=== PATIENT | female | born 1975 | race Caucasian/White ===

== ENCOUNTER 2017-03-23 04:33 | Inpatient (IN) ==
[2017-03-23] MEDS ORDERED: DEXAMETHASONE 4 MG/1 ML VIAL IV STA (04:57)
[2017-03-23] MEDS ORDERED: CLINDAMYCIN INJ 900 MG in PREMIX 1 EACH IV STA (04:57)
[2017-03-23] MEDS ORDERED: HYDROmorphone 2 MG/1 ML VIAL IV ONE (04:57)
[2017-03-23] MEDS ORDERED: ONDANSETRON 4 MG/2 ML VIAL IV STA (04:57)
--- NOTE | 2017-03-23 05:01 | Emergency Department Note ---
Kody Casillas Emily, am scribing for, and in the presence of, Earnest Hoover MD 04: 58. Sneha Casillas Charles R, MD, personally performed the services described in this documentation, ascribed by Christine Gates in my presence, and it is both accurate and complete 501 . Arrival - Arrival Chief Complaint: Dental Stated Complaint: abcess tooth, severe facial swelling ED Nursing Triage Note: Patient complains of dental abscess and left sided facial swelling and pain. Patient states that she was seen at [facility] last and Monday and was sent home with antibiotics. Patient was states that medication has not help. Severe facial swelling and indentation noted upon triage. Has a dentist appointment today but says that she was in too much pain to wait. Mode of Arrival: Ambulatory Limitations: No Limitations Source: Patient, Significant other Time Seen by Provider: 03/23/17 04:47 - History of Present Illness HPI Narrative: Pt is a 41 y/o female who came to ED with c/o dental abscess on left side with facial swelling and pain that started one week ago. Pt states that she was seen at [facility] last and Monday and was sent home with abx. Pt states that medication has not helped, and she has severe facial swelling and indentation. Pt has a dentist appointment today but says that she was in too much pain to wait, needing some pain relief. No known medical hx. Onset (ago): week(s) Consistency: constant Severity: moderate, severe Severity scale (1-10): 8 Date of Last Menstrual Period: 02/28/2017 Allergies/Adverse Reactions: Allergies Allergy/AdvReac Type Severity Reaction Status Date / Time No Known Allergies Allergy Verified 02/10/15 08:37 Home Medications: Home Medications Medication Instructions Recorded Confirmed Type No Known Home Medications [No 03/23/17 03/23/17 History Known Home Medications] Review of System - Review of System 12 point system: reviewed and no additional remarkable complaints except as stated - Review of System Constitutional: Absent: chills, fever Head/Ears/Nose/Throat: Present: other (facial swelling due to swollen abscess; very painful) Respiratory: Absent: respiratory distress Cardiovascular: Absent: chest pain Gastrointestinal: Absent: abdominal pain, vomiting Skin: Absent: rash Neurological: Absent: headache Medical,Surgical,& Family Hx - Social History Smoking Status: Never smoker Frequency of Alcohol Use: None Type of Drug Use: None Exam Vital Signs: Vital Signs Temperature 98.7 F 03/23/17 04:45 Pulse Rate 100 H 03/23/17 04:45 Respiratory Rate 20 03/23/17 04:45 Blood Pressure 115/52 03/23/17 04:45 O2 Sat by Pulse Oximetry 100 03/23/17 04:38 - General General appearance: alert, in no apparent distress - Head Head exam: Present: atraumatic, normocephalic - Eye Eye exam: Present: PERRL, EOMI - ENT ENT exam: Present: mucous membranes moist, other (massive left face abscess that is severely swollen reaching across the midline and under neck; barely opeing her mouth secondary to pain and swelling). Absent: mucous membranes dry - Neck Neck exam: Present: full ROM - Chest Chest inspection: Present: symmetric chest wall rise - Respiratory Respiratory exam: Present: normal lung sounds bilaterally. Absent: respiratory distress - Cardiovascular Cardiovascular exam: Present: tachycardia, normal heart sounds - Extremities Exam Extremities exam: Present: full ROM. Absent: pedal edema - Neurological Exam Neurological exam: Present: alert, oriented X3, CN II-XII intact, normal gait. Absent: motor sensory deficit - Psychiatric Psychiatric exam: Present: normal affect, normal mood - Skin Skin exam: Present: warm, dry Course - Consultations Consultation #1: Dr Diaz states he will see patient in the hospital recommend consult Dr. Mcghee oral surgeon as well. He wanted the patient admitted to hospitalist service Time: 05:00 Consultation #2: Hospitalist will admit patient Time: 05:01 Critical Care Time Critical Care Time: No Disposition Clinical Impression: Toothache, Dental abscess, Left facial swelling, Cellulitis left face Case discussed with: patient, patient's family Disposition: Still a Patient Condition: Stable Time of Disposition: 05:01
[2017-03-23 05:16] LABS: Basophils % 0.2 % (0.0-0.8); Eosinophils # 0.1 10*3/uL (0.0-0.87); Eosinophils % 0.4 % (0.00-10.9); Hematocrit 22.7 VOL% (35.7-47.0); Hemoglobin 6.5 GM/DL (12.0-16.0); Immature Granulocytes % 1.4 %; Immature Granulocytes Absolute 0.26 #; Lymphocytes # 1.4 10*3/uL (1.4-4.0); Lymphocytes % 7.5 % (21.3-54.2); Mean Corpuscular HGB Conc 28.6 GM/DL (32-36); Mean Corpuscular Hemoglobin 18 PG (27-34); Mean Corpuscular Volume 62.9 FL (87-102); Mean Platelet Volume 10.6 FL (9.6-12.0); Monocytes # 1.7 10*3/uL (0.11-0.8); NRBC # 0.02 10*3/uL; Neutrophils # 15.4 10*3/uL (1.4-7.4); Neutrophils % 81.5 % (38.7-73.9); Platelet Count 643 T/CUMM (130-400); Red Blood Count 3.61 MC/CUMM (3.8-5.5); Red Cell Distribution Width 18.1 % (9.3-17.3); White Blood Count 18.9 T/CUMM (4-12)
[2017-03-23] MEDS ORDERED: ONDANSETRON 4 MG/2 ML VIAL IV PRN (05:25)
[2017-03-23] MEDS ORDERED: ACETAMINOPHEN 325 MG TABLET PO PRN (05:25)
[2017-03-23] MEDS ORDERED: DOCUSATE SODIUM 100 MG CAPSULE PO PRN (05:25)
[2017-03-23] MEDS ORDERED: ONDANSETRON 4 MG/2 ML VIAL ONE (05:33)
[2017-03-23] MEDS ORDERED: CLINDAMYCIN INJ 50 ML IV ONE (05:33)
[2017-03-23] MEDS ORDERED: HYDROmorphone 2 MG/1 ML VIAL ONE (05:34)
[2017-03-23] MEDS ORDERED: DEXAMETHASONE 10 MG/1 ML VIAL ONE (05:34)
[2017-03-23 05:48] LABS: Giant Platelets Few; Hypochromasia 1+; Ovalocytes Slight; Platelet Estimate Increased
[2017-03-23] MEDS ORDERED: PIPERACILLIN/TAZOBACTAM 3,375 MG in SODIUM CHLORIDE 0.9% 100 ML IV STA (05:49)
--- NOTE | 2017-03-23 05:49 | Hospitalist History & Physical ---
Assessment and Plan - Time spent with patient Time spent with patient: Greater than 30 minutes (1) Dental abscess Status: Acute Assessment and plan: Admit to hospitalist services. Consult ENT and Oral surgeon. WBC was 18.9; afebrile. Need for CT was discussed to ERP and one was ordered. Zosyn 3.375 mg IV Q8 hours. Current Visit: Yes (2) Anemia Status: Acute Assessment and plan: Hemoglobin and hematocrit were 6.5 and 22.7 respectively. Type and screen and transfuse 2 unit PRBC. Recheck hemoglobin an hematocrit 1 hour post transfusion. A murmur was noted on exam which is likely due to anemia. Recheck after transfusion. Current Visit: Yes (3) DVT prophylaxis Status: Acute Assessment and plan: SCDs in case there is a need for surgery. Current Visit: Yes History of Present Illness Chief complaint: Facial swelling History of present illness: Ms. Santiago is a 41 year old female with no past medical history who presented to the ED this morning with left-sided facial swelling and pain x 7 days. Ms. Santiago reports that 7 days ago, she had sudden development of facial swelling for which she presented to the ED in [place] where she was given an antibiotic shot and sent home with a prescription for clindamycin. On Monday, she once again presented to the ED in [place] because there had been no change in her condition. At that time she was given 3 shots and sent home to continue her oral antibiotics. This morning she presented to [facility] ED because the pain had become more than she can bear and still has had no change in swelling. Her pain is 10/10 and throbbing. She also has complaints of fever, chills, and continuous nausea but denies vomiting other than one episode a few days ago. She takes no routine medications. Hospitalist services were consulted for further evaluation and management, and the patient will be admitted to the medical-surgical unit. Home Medications Medication Instructions Recorded Confirmed Type No Known Home Medications [No 03/23/17 03/23/17 History Known Home Medications] Allergies Allergy/AdvReac Type Severity Reaction Status Date / Time No Known Allergies Allergy Verified 02/10/15 08:37 Medical,Surgical,& Family Hx - Medical History Medical History: noncontributory (None) - Social History Smoking Status: Never smoker Frequency of Alcohol Use: None Type of Drug Use: None 12 point system: reviewed and no additional remarkable complaints except as stated - Constitutional Constitutional: Present: chills, fever(s), night sweats - EENT Eyes: Absent: blurry vision, diplopia, loss of vision Ears: Absent: decreased hearing, ear discharge - Cardiovascular Cardiovascular: Absent: chest pain at rest, dyspnea, edema, orthopnea, palpitations - Respiratory Respiratory: Absent: cough, dyspnea, wheezing - Gastrointestinal Gastrointestinal: Present: nausea, vomiting. Absent: abdominal pain, constipation, diarrhea - Genitourinary Genitourinary: Absent: dysuria, urinary frequency - Musculoskeletal Musculoskeletal: Absent: arthralgias, back pain, joint swelling, muscle weakness , myalgias - Neurological Neurological: Present: numbness. Absent: dizziness, syncope - Psychiatric Psychiatric: Absent: anxiety, depression - Endocrine Endocrine: Absent: cold intolerance, polydipsia, polyphagia, polyuria - Hematologic/Lymphatic Hematologic/Lymphatic: Absent: easy bleeding, easy bruising Exam - Constitutional Vitals: Period Temp Pulse Resp BP Sys/Pinon Pulse Ox Last 24 Hr 98.7 F-98.7 F 100-100 20-20 115-115/52-52 100 Exam: Constitutional System: Afebrile. Awake, alert and oriented x 3. No distress. No tremulousness. Head: Normocephalic, atraumatic. Ears, Nose and Throat System: Significant left-sided facial swelling, pain and tenderness. No epistaxis or discharge Eyes System: Pupils equal, round, and reactive. Extraocular muscles intact. Neck: Supple, without adenopathy, No jugular venous distention. No thyromegaly, neck mass, or prior surgery apparent. Respiratory System: Chest clear to auscultation. Cardiovascular System: Heart with regular rate and rhythm. Systolic murmur noted. GI System: Abdomen soft, nontender. Normo active bowel sounds present. Musculoskeletal System: limbs with no pedal edema. Full distal pulses. Normal capillary refill. Neurological System: No discernable sensory deficit. No aphasia Psychiatric System: Conversation is rational Results - Labs CBC & BMP: 03/23/17 05:09 03/23/17 05:09
[2017-03-23] MEDS ORDERED: SODIUM CHLORIDE 0.9% 250 ML IV PRN (05:50)
[2017-03-23] MEDS ORDERED: PIPERACILLIN/TAZOBACTAM 3,375 MG VIAL IV ONE (05:51)
[2017-03-23 05:55] LABS: Albumin 2.9 G/DL (3.4-5.0); Bilirubin,Total 0.7 MG/DL (0.2-1.0); Calcium 8.9 MG/DL (8.5-10.1); Potassium 3.7 MMOL/L (3.5-5.1); Total Protein 6.4 G/DL (6.4-8.3)
--- NOTE | 2017-03-23 06:35 | CT Report ---
History is left facial cellulitis Axial images obtained with 2-D multiplanar reconstruction images also stored and interpreted There is marked soft tissue swelling in the left jaw anterior laterally on the left abutting the mandible and the muscles of mastication. Tiny amounts of fluid present in surgery without a discrete loculated abscess. There is adjacent odontogenic disease in the left maxilla present with some contiguous lobulated the opacity in the inferior aspect left maxillary sinus measuring up to 2.5 cm. Scattered 5-8 mm cervical nodes present. No intraorbital inflammation seen. Impression: 1. Odontogenic disease with left facial cellulitis and left mastoid disease. No loculated facial abscess identified The CT exam was performed using one or more of the following dose reduction techniques: Automated exposure control, adjustment of the mA and/or kV according to patient size, or use of iterative reconstruction technique. PROCEDURE INTERPRETED AT [facility] DEPARTMENT OF RADIOLOGY Final Report Signed by: Dr. Liudmila Trimble
[2017-03-23] MEDS: PIPERACILLIN/TAZOBACTAM 3,375 MG in SODIUM CHLORIDE 0.9% 100 ML IV SCH ×3 (07:43→22:38)
--- NOTE | 2017-03-23 08:11 | Consultation ---
Assessment and Plan - Time spent with patient Time spent with patient: Less than 30 minutes (1) Left facial swelling Status: Acute Assessment and plan: I will defer to oral surgery for the treatment of this but I am available for any additional treatment as needed. I will speak directly with oral surgery in regards to this. Thank you very much for this consult I will intermittently follow this patient throughout her stay to make sure she continues to progress. Overall I agree with the treatment currently. Current Visit: Yes (2) Toothache Status: Acute Current Visit: Yes (3) Dental abscess Status: Acute Current Visit: Yes (4) Anemia Status: Acute Current Visit: Yes (5) Anemia Status: Acute Current Visit: Yes History of Present Illness - Data of Consult Patient: new to practice Consult date: 03/23/17 - Consult Narrative Reason for consult: Left submandibular abscess secondary to odontogenic origin History of present illness: Ms. Santiago is a 41 year old female presents to the ER with worsening left submandibular swelling erythema and tenderness. This is been getting worse over the last several weeks and has markedly exacerbated to where she is now no longer able to open her mouth. She is seen by the ER and found to have a left submandibular abscess with odontogenic origin ENT is consulted and I said that they also needed to consult oral surgery as they are more likely to be able to address the underlying issue. CC: Maynor Olmos MD - Home Medications and Allergies Home Medications: Home Medications Medication Instructions Recorded Confirmed Type No Known Home Medications [No 03/23/17 03/23/17 History Known Home Medications] Allergies/Adverse Reactions: Allergies Allergy/AdvReac Type Severity Reaction Status Date / Time No Known Allergies Allergy Verified 02/10/15 08:37 12 point system: reviewed and no additional remarkable complaints except as stated Medical,Surgical,& Family Hx - Medical History HEENT: History of: Dental Problems (current abcess) Endocrine: No history of: Adrenal Disease, Diabetes Mellitus (IDDM), Diabetes Mellitus ( NIDDM), Thyroid Disorder, Endocrine Cancer, Endocrine Problems Hematology: History of: Anemia - Surgical History Thoracic Surgeries: Patient denies;: Organ Transplant Neurologic Surgeries: Patient denies: Neurologic Surgery HEENT Surgeries: Patient denies: Thyroid Surgery - Social History Smoking Status: Never smoker Frequency of Alcohol Use: None Type of Drug Use: None Exam - Constitutional Vitals: Period Temp Pulse Resp BP Sys/Pinon Pulse Ox Last 24 Hr 98.7 F-98.7 F 90-100 16-20 109-133/52-68 98-100 General appearance: mild distress, over weight - Head Head exam: Present: normal inspection, other (Erythemic fluctuant left submandibular abscess and secondary cellulitis) - Eye Eye exam: Present: EOMI Pupils: Present: CAMACHO - ENT ENT exam: Present: normal exam, normal external ear exam, other (Rah trismus able to see a markedly carious left mandibular molar consistent with the root cause of the problem) - Neck Neck exam: Present: lymphadenopathy, tenderness - Respiratory Respiratory exam: Present: other (No gross shortness of breath or difficulty breathing) - GI/Abdominal GI/Abdominal exam: Present: soft - Extremities Exam Extremities exam: Present: normal inspection, normal capillary refill - Neurological Exam Neurological exam: Present: alert, oriented X3, CN II-XII intact - Psychiatric Psychiatric exam: Present: normal affect, normal mood - Skin Skin exam: Present: normal color (Except for erythematous left submandibular area see above), warm Results - Labs CBC & BMP: 03/23/17 05:09 03/23/17 05:09 Lab Results: I have reviewed the past 24 hour labs (Noted marked anemia I agree with hospitalist transfusion we will continue to monitor this during treatment) - Diagnostic Findings Procedure: CT: pending, image reviewed by me, report reviewed by me (I agree with radiology interpretation left submandibular abscess may be a little worse Clinically then visualized on CT)
[2017-03-23] MEDS: PANTOPRAZOLE 40 MG TABLET PO SCH (10:01)
--- NOTE | 2017-03-23 12:29 | Event Note ---
03/23/17 - Patient came to the ED at 5a.m. this morning for further evaluation of facial left-sided jaw swelling/abscess with pain for [address] Diaz with ENT has seen patient and agrees and recommends to defer care to oral surgeon for further treatment. Dr Diaz will discuss with oral surgeon as well. She is awaiting consulted oral surgeon to visit for assessment and further evaluation with treatment care plan. I talked with her nurse and asked her to please place a gauze to abscessed area to left side of face because it has now started to drain. Will await recommendations with surgery, will continue antibiotic coverage.
--- NOTE | 2017-03-23 12:38 | ECHO Report ---
Tamiko Santiago Exam Date: 03/23/2017 09:44 Referring Physician: Technologist: brandon Falcon ARDMS, RVT Age: 41 Ht (in): 63 Wt (lb): 191 Gender: F Exam Location: [facility] Echo Indications: Cardiac murmur, unspecified, Tooth abcess, Anemia BP: 109 / 68 HR: Rhythm: Sinus Technical Quality: average IMPRESSIONS Left ventricular cavity size structure and function are normal. Diastolic parameters appear to be most consistent with grade 2 diastolic dysfunction or pseudonormalization. Right ventricle is enlarged with normal function. MEASUREMENTS (Male / Female) Normal Values 2D ECHO LV Diastolic Diameter PLAX 4.4 cm 4.2 - 5.9 / 3.9 - 5.3 cm LV Systolic Diameter PLAX 1.2 cm LV Fractional Shortening PLAX 72.5 % IVS Diastolic Thickness 0.8 cm 0.6 - 1.0 / 0.6 - 0.9 cm LVPW Diastolic Thickness 0.9 cm 0.6 - 1.0 / 0.6 - 0.9 cm RV Internal Dim ED PLAX 3.9 cm Aortic Root Diameter 3.0 cm LA Systolic Diameter LX 3.9 cm 3.0 - 4.0 / 2.7 - 3.8 cm FINDINGS Left Ventricle Left ventricular cavity size structure and function are normal. Diastolic parameters appear to be most consistent with grade 2 diastolic dysfunction or pseudonormalization Right Ventricle Right ventricle is enlarged. The function is normal Right Atrium Slightly enlarged Left Atrium Normal Mitral Valve Mitral valve is normal there is no stenosis or regurgitation Aortic Valve Aortic valve is tricuspid there is no stenosis or regurgitation Tricuspid Valve Tricuspid valve is normal. There is no demonstrable tricuspid regurgitation Pulmonic Valve Pulmonic valve is anatomically normal there is no stenosis or insufficiency Pericardium Posterior pericardium is mildly echolucent but there is no effusion Aorta Limited visualization of the thoracic aorta is normal Connie Vivar (Electronically Signed) Final Date: 23 March 2017 12:37
--- NOTE | 2017-03-23 12:47 | Consultation ---
Assessment and Plan - Time spent with patient Time spent with patient: Less than 30 minutes (1) Dental abscess Status: Acute Assessment and plan: 41 yo F with left submandibular abscess likely due to carious tooth #18 to require I & D and extraction of tooth 1. OK to start diet today - soft foods, NPO at midnight tonight for surgery tomorrow after noon 2. Consent for Incision and drainage left submandibular abscess and extraction of necessary teeth 3. Cont iv antibiotics and pain control 4. Thank you for the consult, please call with questions as I will continue to follow the patient. Current Visit: Yes History of Present Illness - Data of Consult Patient: new to practice Consult date: 03/23/17 Requesting Physician: Sandip Diaz - Consult Narrative Reason for consult: left submandibular abscess History of present illness: Ms. Santiago is a 41 year old female who presented to the ED today with 5 days worth of left facial swelling worsening past few days causing trismus and dysphagia. No f/c. C/o drainage from left mandible and pain at left lower molar tooth. Has not visited dentist in many months. Since beginning antibiotics patient feels like swelling has decreased and trismus/dysphagia improved. CC: Maynor Olmos MD - Home Medications and Allergies Home Medications: Home Medications Medication Instructions Recorded Confirmed Type No Known Home Medications [No 03/23/17 03/23/17 History Known Home Medications] Allergies/Adverse Reactions: Allergies Allergy/AdvReac Type Severity Reaction Status Date / Time No Known Allergies Allergy Verified 02/10/15 08:37 - Constitutional Constitutional: Present: as per HPI - EENT Nose, mouth and throat: Present: as per HPI, other (left mandibular swelling with drainage, painful left mandibular second molar) Medical,Surgical,& Family Hx - Medical History HEENT: History of: Dental Problems (current abcess) Endocrine: No history of: Adrenal Disease, Diabetes Mellitus (IDDM), Diabetes Mellitus ( NIDDM), Thyroid Disorder, Endocrine Cancer, Endocrine Problems Hematology: History of: Anemia - Surgical History Thoracic Surgeries: Patient denies;: Organ Transplant Neurologic Surgeries: Patient denies: Neurologic Surgery HEENT Surgeries: Patient denies: Thyroid Surgery - Social History Smoking Status: Never smoker Frequency of Alcohol Use: None Type of Drug Use: None Exam - Constitutional Vitals: Period Temp Pulse Resp BP Sys/Pinon Pulse Ox Last 24 Hr 98.0 F-98.7 F 88-100 16-20 109-133/52-68 98-100 General appearance: mild distress - Eye Eye exam: Present: EOMI Pupils: Present: CAMACHO - ENT ENT exam: Present: other (carious/fractured tooth #18 with tenderness, tongue mobile and not elevated, no floor of mouth swelling, no uvular deviation) - Neck Neck exam: Present: other (left submandibular swelling, fluctuant with erythema and drainage, +tenderness) Results - Labs CBC & BMP: 03/23/17 05:09 03/23/17 05:09 Labs: elevated WBC - Impressions Patient with left submandibular abscess likely secondary to carious tooth #18 to require I&D and extraction of tooth
[2017-03-23 21:41] LABS: Hematocrit 28.2 VOL% (35.7-47.0); Hemoglobin 8.7 GM/DL (12.0-16.0)
[2017-03-23] MEDS: CHLORHEXIDINE 0.12% ORAL RINSE 60 ML BOTTLE SWISH/SPIT SCH (22:31)
[2017-03-23 23:00] LABS: Apearance,Urine CLEAR (Clear); Bilirubin,Urine Negative (Negative); Blood, Urine Moderate mg/dL (Negative); Glucose,Urine (UA) 50 mg/dL (Negative); Ketones,Urine Negative (Negative); Nitrite,Urine Negative (Negative); Protein,Urine Negative; RBC,Urine 3 /HPF (0-4); Squamous Epithelial Cell,Urine Occasional /HPF (0-10); Urine Color Yellow (Yellow); Urine Specific Gravity 1.011 (1.001-1.035); WBC,Urine 4 /HPF (0-6)
[2017-03-24] MEDS: MORPHINE 2 MG/1 ML SYRINGE IV PRN ×3 (01:36→15:27)
[2017-03-24 05:07] LABS: Basophils % 0.2 % (0.0-0.8); Hematocrit 27.2 VOL% (35.7-47.0); Hemoglobin 8.5 GM/DL (12.0-16.0); Immature Granulocytes % 2.6 %; Immature Granulocytes Absolute 0.46 #; Lymphocytes # 1.4 10*3/uL (1.4-4.0); Lymphocytes % 7.7 % (21.3-54.2); Mean Corpuscular HGB Conc 31.3 GM/DL (32-36); Mean Corpuscular Hemoglobin 21 PG (27-34); Mean Corpuscular Volume 67.5 FL (87-102); Monocytes # 1.4 10*3/uL (0.11-0.8); NRBC # 0.02 10*3/uL; Neutrophils # 14.5 10*3/uL (1.4-7.4); Neutrophils % 81.5 % (38.7-73.9); Platelet Count 666 T/CUMM (130-400); Red Blood Count 4.03 MC/CUMM (3.8-5.5); White Blood Count 17.8 T/CUMM (4-12)
[2017-03-24 05:47] LABS: Band Neutrophils 2 % (0-10); Elliptocytes Few; Giant Platelets Few; Hypochromasia 1+; Lymphocytes 7 % (20-55); Platelet Estimate Increased; Segmented Neutrophils 87 % (50-85); Total Cells Counted 100
[2017-03-24] MEDS: PIPERACILLIN/TAZOBACTAM 3,375 MG in SODIUM CHLORIDE 0.9% 100 ML IV SCH ×3 (06:13→22:15)
--- NOTE | 2017-03-24 07:45 | Physician Query Form ---
CLICK EDIT DOCUMENT TO SELECT QUERY ANSWER --> OK --> SIGN Deepali Garcia RN, CCDS Certified Clinical Commanding Officer [employer] W) [phone] (f) [phone] [email or web address]: Make your selection(s) from the choices in EACH section by typing an "x" and enter comments in the comment section. Please use your independent medical judgment in providing your response. This request does not imply that any particular answer is desired or expected. CLINICAL INDICATORS: (Providers should not edit this section) "Patient was found to be significantly anemic most likely related to her heavy periods we are going to transfuse 2 units of packed red blood cells. / HH 6.5 and 22.7" Based on the above, could you clarify which of the following conditions you are evaluating, treating, and/or monitoring? (X ) Blood loss anemia ( ) acute ( ) chronic ( X) acute on chronic ( ) Acute blood loss anemia on baseline chronic anemia ( ) Acute blood loss anemia as a complication of a procedure ( ) Iron deficiency anemia not associated with blood loss ( ) Dilutional anemia due to IV fluids ( ) Anemia due to chemotherapy ( ) Anemia due to neoplastic disease ( ) Anemia due to chronic kidney disease ( ) Pernicious anemia ( ) Aplastic anemia ( ) Hemolytic anemia ( ) immune ( ) non-immune - please specify cause: ( ) Anemia due to other condition, please specify: ( ) Clinically unable to determine COMMENTS: PLEASE ALSO DOCUMENT RESPONSE IN PROGRESS NOTES AND/OR DISCHARGE SUMMARY Use of terms such as suspected, likely, or probable (associated with a specific diagnosis that is being evaluated, monitored, or treated as if it exists) are acceptable and can be restated in the discharge summary if not ruled out. MTDD
[2017-03-24] MEDS: PANTOPRAZOLE 40 MG TABLET PO SCH (08:30)
[2017-03-24] MEDS: CHLORHEXIDINE 0.12% ORAL RINSE 60 ML BOTTLE SWISH/SPIT SCH ×2 (08:31→22:15)
--- NOTE | 2017-03-24 11:26 | Hospitalist Progress Note ---
Assessment and Plan - Time spent with patient Time spent with patient: Less than 30 minutes (1) Dental abscess Status: Acute Assessment and plan: Surgery scheduled for today. greatly appreciate Oral Surgeon assistance with care and for further recommendations. Will repeat labs in a.m. Current Visit: Yes (2) Left facial swelling Status: Acute Assessment and plan: WBC slight decrease to 17.8 from 18.9. Left sided facial abscess drainage with gauze intact. Continue follow up on blood culture finals. Continue antibiotic therapy. Surgery today. Will follow oral surgeon recommendation with care. Current Visit: Yes Hospitalist: Subjective Interval history: Ms Santiago seen and chart reviewed. She is sitting up on side of bed awaiting to go to surgery around 12 today. She verbalized the left-sided facial abscess is still draining and the swelling has improved a little. She verbalized that the pain has been better and has been well controlled. She denies shortness of breath. Exam - Constitutional Vitals: Period Temp Pulse Resp BP Sys/Pinon Pulse Ox Last 24 Hr 97.0 F-99.2 F 20-99 16-20 111-155/58-90 97-100 General appearance: normal weight, no acute distress - Head Head exam: Present: normal inspection - Eye Eye exam: Present: EOMI Pupils: Present: CAMACHO - ENT ENT exam: Present: other (left sided facial abscess with gauze intact related to frequent drainage) - Neck Neck exam: Present: normal inspection. Absent: thyromegaly - Respiratory Respiratory exam: Present: clear to auscultation bilaterally. Absent: rhonchi, stridor, wheezes - Cardiovascular Cardiovascular exam: Present: regular rate and rhythm - GI/Abdominal GI/Abdominal exam: Present: normal bowel sounds, soft. Absent: tenderness, rebound - Extremities Exam Extremities exam: Present: full ROM. Absent: edema - Neurological Exam Neurological exam: Present: alert, oriented X3, CN II-XII intact - Psychiatric Psychiatric exam: Present: normal affect, normal mood, anxious (a little anxious related to having surgery todayfor leftside facial abscess) - Skin Skin exam: Present: normal color, warm, dry Results - Labs CBC & BMP: 03/24/17 04:26 03/23/17 05:09 Lab Results: I have reviewed the past 24 hour labs
[2017-03-24] MEDS ORDERED: SUCCINYLCHOLINE 200 MG/10 ML VIAL ONE (11:28)
[2017-03-24] MEDS ORDERED: PROPOFOL 200 MG/20 ML VIAL IV ONE (11:28)
[2017-03-24] MEDS ORDERED: LIDOCAINE 2% 5 ML VIAL ONE (11:28)
[2017-03-24] MEDS ORDERED: ONDANSETRON 4 MG/2 ML VIAL ONE (11:28)
[2017-03-24] MEDS ORDERED: DEXAMETHASONE 4 MG/1 ML VIAL ONE (11:28)
[2017-03-24] MEDS ORDERED: BUPIVACAINE 0.5% /EPI 10 ML VIAL ONE (11:35)
--- NOTE | 2017-03-24 12:18 | Operative Note ---
Date of procedure: 03/24/17 Pre-op diagnosis: left submandibular abscess, carious tooth #18 Post-op diagnosis: same Procedure: Incision and drainage left submandibular abscess, extraction of tooth #18 Implants: 08/03 in kenneth drain left neck Anesthesia: DENA, local Surgeon / Physician: Chun Mcghee Estimated blood loss: minimal Specimens: other (aerobic/anaerobic cultures) Condition: stable Disposition: PACU Results - Labs CBC & BMP: 03/24/17 04:26 03/23/17 05:09 Discharge Plan - Discharge Medications No Action No Known Home Medications [No Known Home Medications] - Follow Up or Referral - Forms/Instructions
--- NOTE | 2017-03-24 12:23 | Event Note ---
S/p I&D left submandibular abscess and extraction of tooth #18 1. continue iv antibiotics, pain control 2. follow for results of cultures and narrow antibiotic coverage as indicted - however likely may be negative given she has been on iv antibiotics currently 3. drain in neck - i will remove first dressing after 24 hours and then nursing may change dressing to left neck twice daily 4. will keep drain in place until drainage stopped 5 due to level of skin necrosis at left neck, may require secondary surgery for repair and skin grafting if does not granulate in properly 6. irrigate oral cavity with chlorhexadine, irrigate extraoral neck with saline and bacitracin 7. I will continue to follow along - patient may be admitted through the weekend for monitoring drain output
--- NOTE | 2017-03-24 12:30 | Anesthesia Post-Op ---
Anesthesia Post OP - Post Ansesthetic Evaluation Patient seen in post op: Yes Resp: within normal limits CV: within normal limits Mental: within normal limits Temp: within normal limits [id number]: within normal limits Nausea and Vomiting: within normal limits Pain: within normal limits
[2017-03-24] MEDS ORDERED: fentaNYL 100 MCG/2 ML VIAL ONE (12:34)
[2017-03-24] MEDS ORDERED: MIDAZOLAM 2 MG/2 ML VIAL ONE (12:34)
[2017-03-24] MEDS ORDERED: SEVOFLURANE 1 UNIT/15 MINUTE INH ONE (12:34)
[2017-03-24] MEDS ORDERED: HYDROmorphone 2 MG/1 ML VIAL IV PRN (12:41)
[2017-03-24] MEDS ORDERED: ONDANSETRON 4 MG/2 ML VIAL IV PRN (12:41)
[2017-03-24] MEDS ORDERED: LACTATED RINGERS 1,000 ML IV SCH (13:00)
[2017-03-25 04:52] LABS: Basophils % 0.2 % (0.0-0.8); Hematocrit 28.6 VOL% (35.7-47.0); Hemoglobin 8.6 GM/DL (12.0-16.0); Immature Granulocytes % 2.4 %; Immature Granulocytes Absolute 0.31 #; Lymphocytes # 0.9 10*3/uL (1.4-4.0); Lymphocytes % 6.8 % (21.3-54.2); Mean Corpuscular HGB Conc 30.1 GM/DL (32-36); Mean Corpuscular Hemoglobin 21 PG (27-34); Mean Corpuscular Volume 68.9 FL (87-102); Mean Platelet Volume 10.2 FL (9.6-12.0); Monocytes # 0.8 10*3/uL (0.11-0.8); Monocytes % 6.3 % (1.7-12.7); Neutrophils # 10.7 10*3/uL (1.4-7.4); Neutrophils % 84.3 % (38.7-73.9); Platelet Count 728 T/CUMM (130-400); Red Blood Count 4.15 MC/CUMM (3.8-5.5); Red Cell Distribution Width 22.8 % (9.3-17.3); White Blood Count 12.7 T/CUMM (4-12)
[2017-03-25 05:07] LABS: Calcium 8.8 MG/DL (8.5-10.1); Magnesium 2.4 MG/DL (1.8-2.4); Osmolality,Calculated 281.3 MOS/KG (273-304); Potassium 4.6 MMOL/L (3.5-5.1)
[2017-03-25] MEDS: PIPERACILLIN/TAZOBACTAM 3,375 MG in SODIUM CHLORIDE 0.9% 100 ML IV SCH ×3 (05:45→21:39)
[2017-03-25] MEDS: PANTOPRAZOLE 40 MG TABLET PO SCH (09:45)
[2017-03-25] MEDS: CHLORHEXIDINE 0.12% ORAL RINSE 60 ML BOTTLE SWISH/SPIT SCH ×2 (10:00→21:53)
--- NOTE | 2017-03-25 14:20 | Hospitalist Progress Note ---
Assessment and Plan (1) Dental abscess Status: Acute Assessment and plan: The patient has had debridement of dental abscess. The patient has considerable drainage from her face. The patient is continuing IV antibiotics until it is determined by Dr. Muñiz that she can go home on pills. Current Visit: Yes (2) Left facial swelling Status: Acute Current Visit: Yes Hospitalist: Subjective Interval history: Mrs. Santiago is more alert today. She is not having shortness of breath or chest pain. She says her face feels better. Exam - Constitutional Vitals: Period Temp Pulse Resp BP Sys/Pinon Pulse Ox Last 24 Hr 97.6 F-98.9 F 72-92 16-18 97-158/54-81 94-98 General appearance: mild distress - Respiratory Respiratory exam: Present: clear to auscultation bilaterally - Cardiovascular Cardiovascular exam: Present: regular rate and rhythm - GI/Abdominal GI/Abdominal exam: Present: normal bowel sounds Results - Labs CBC & BMP: 03/25/17 03:12 03/25/17 03:12 Lab Results: I have reviewed the past 24 hour labs
--- NOTE | 2017-03-25 15:46 | Progress Note ---
Assessment and Plan (1) Dental abscess Status: Acute Assessment and plan: 41 yo F with left submandibular abscess likely due to carious tooth #18 POD #1 s /p I & D and extraction of tooth 1. continue IV antibiotics, pain control 2. awaiting culture results 3. continue BID dressing changes, will keep drain until drainage stops 4. head of bed elevated 5. will consult wound care team for evaluation and recs Current Visit: Yes Family Medicine PN Sub Interval history: Patient now POD #1 s/p I&D left submandibular abscess and extraction of tooth # 18. Doing very well and much better. No f/c, no dysphagia, no dyspnea. Still having drainage, swelling improved but still present. Exam (Progress Note) - Constitutional Vitals: Period Temp Pulse Resp BP Sys/Pinon Pulse Ox Last 24 Hr 97.6 F-98.9 F 72-92 16-18 97-158/54-81 94-98 General appearance: mild distress - Eye Eye exam: Present: EOMI Pupils: Present: CAMACHO - ENT ENT exam: Present: other (left submandibular swelling and erythema improving, still with purulent drainage, wound open and looks clean, kenneth drain intact; intraoral hemostasis, floor of mouth soft, no tongue elevation, no uvular deviation) Results - Labs CBC & BMP: 03/25/17 03:12 03/25/17 03:12 Lab Results: I have reviewed the past 24 hour labs Labs: WBC decreasing - Impressions Patient POD #1 s/p I&D left submandibular abscess and extraction of tooth #18 doing very well and improving
[2017-03-26] MEDS: PIPERACILLIN/TAZOBACTAM 3,375 MG in SODIUM CHLORIDE 0.9% 100 ML IV SCH ×3 (06:21→21:40)
[2017-03-26] MEDS: PANTOPRAZOLE 40 MG TABLET PO SCH (09:36)
[2017-03-26] MEDS: CHLORHEXIDINE 0.12% ORAL RINSE 60 ML BOTTLE SWISH/SPIT SCH ×2 (09:39→21:40)
--- NOTE | 2017-03-26 11:52 | Hospitalist Progress Note ---
Assessment and Plan - Time spent with patient Time spent with patient: Less than 30 minutes (1) Status post debridement and tooth extrac Status: Acute Assessment and plan: 41-year-old white female with no reported medical history admitted by the hospitalist service on 03/23/2017 with left-sided facial swelling due to dental abscess and anemia. She was given 2 units of blood and her H&H is stable. Dr. Mcghee performed an I&D of the left submandibular abscess and extraction of tooth #18 on 03/24/2017. Patient's pain and swelling have improved. Wound care orders will be written for twice daily with Myrna. Patient will be transferred to a regular [facility] floor. Her cultures are growing gram-positive rods and she is on Zosyn with sensitivities pending. Patient should be okay for discharge when cultures return and drainage stops with home health to assist in her wound care if okay with Dr. Mcghee. Dr. Olmos we will see and examine patient and further recommendations to follow. Current Visit: Yes (2) Leukocytosis Status: Acute Current Visit: Yes (3) Toothache Status: Acute Current Visit: Yes (4) Dental abscess Status: Acute Current Visit: Yes (5) Left facial swelling Status: Acute Current Visit: Yes (6) Anemia Status: Acute Current Visit: Yes Hospitalist: Subjective Interval history: Patient states her jaw still hurts but she is feeling a little better. She is eating and drinking well. No complaints of chest pain or shortness of breath. She states her dressing has not been changed since surgery. Exam - Constitutional Vitals: Period Temp Pulse Resp BP Sys/Pinon Pulse Ox Last 24 Hr 97.0 F-97.9 F 75-89 18-18 106-158/61-81 96-98 Exam: 41-year-old white female, no acute distress, alert and oriented Left open jaw wound with Joao intact, purulent drainage with odor, no cellulitis Chest clear CV regular rate and rhythm Abdomen soft and nontender Extremities no edema Results - Labs CBC & BMP: 03/25/17 03:12 03/25/17 03:12 Lab Results: I have reviewed the past 24 hour labs
[2017-03-26] MEDS: MORPHINE 2 MG/1 ML SYRINGE IV PRN ×2 (12:00→21:41)
[2017-03-26] MEDS: SODIUM HYPOCHLORITE 0.25% IRRIG 473 ML BOTTLE TOP SCH ×2 (12:15→21:40)
[2017-03-26] MEDS: CHLORHEXIDINE 4% SOLN 118 ML BOTTLE TOP SCH (12:15)
[2017-03-27] MEDS: PIPERACILLIN/TAZOBACTAM 3,375 MG in SODIUM CHLORIDE 0.9% 100 ML IV SCH ×3 (06:29→21:22)
[2017-03-27] MEDS: CHLORHEXIDINE 0.12% ORAL RINSE 60 ML BOTTLE SWISH/SPIT SCH ×2 (09:50→21:22)
[2017-03-27] MEDS: PANTOPRAZOLE 40 MG TABLET PO SCH (09:57)
--- NOTE | 2017-03-27 16:27 | Hospitalist Progress Note ---
Hospitalist: Subjective Interval history: 41-year-old female with left facial cellulitis due to dental abscess status post surgery. She reports her pain and swelling has improved since surgery. Exam - Constitutional Vitals: Period Temp Pulse Resp BP Sys/Pinon Pulse Ox Last 24 Hr 97.4 F-98.0 F 71-95 17-20 113-139/64-79 98-100 Exam: General: No Acute Distress HEENT: Decreased left facial swelling] Neck: Supple, No JVD Chest: Clear to auscultation B/L CV: S1 + S2 audible without murmur, gallop or rub Abd: soft, NT, Non-distended, BS + Ext: No edema Skin: No purpura, bruising or rash Rheumatologic: No Joint deformities Neurologic: Strength 5/5 all extremities, no gross sensory deficits Results - Labs CBC & BMP: 03/25/17 03:12 03/25/17 03:12 - Impressions Assessment and Plan (1) Dental abscess Status: Acute Assessment and plan: The patient has had debridement of dental abscess. The patient has considerable drainage from her face. The patient is continuing IV antibiotics until it is determined by maxillofacial surgeon that she can go home on oral antibiotic. She also getting wound care. Current Visit: Yes (2) Left facial swelling Status: Acute Current Visit: Yes
[2017-03-27] MEDS: SODIUM HYPOCHLORITE 0.25% IRRIG 473 ML BOTTLE TOP SCH ×2 (16:55→21:22)
[2017-03-27] MEDS: CHLORHEXIDINE 4% SOLN 118 ML BOTTLE TOP SCH (16:55)
[2017-03-28] MEDS: MORPHINE 2 MG/1 ML SYRINGE IV PRN ×3 (02:01→21:25)
[2017-03-28] MEDS: PIPERACILLIN/TAZOBACTAM 3,375 MG in SODIUM CHLORIDE 0.9% 100 ML IV SCH ×3 (06:05→21:53)
[2017-03-28] MEDS: PANTOPRAZOLE 40 MG TABLET PO SCH (08:19)
[2017-03-28] MEDS: CHLORHEXIDINE 0.12% ORAL RINSE 60 ML BOTTLE SWISH/SPIT SCH ×2 (08:20→20:03)
--- NOTE | 2017-03-28 09:55 | Hospitalist Progress Note ---
Assessment and Plan (1) Dental abscess Status: Acute Assessment and plan: Status post tooth extraction. Continue IV Zosyn. Follow-up final cultures. Continue wound dressing changes. Current Visit: Yes (2) Left facial swelling Status: Acute Current Visit: Yes (3) Status post debridement and tooth extrac Status: Acute Current Visit: Yes (4) Leukocytosis Status: Acute Current Visit: Yes Hospitalist: Subjective Interval history: Patient seen and examined. No acute events overnight. Case discussed with nursing staff. Labs reviewed. Patient looks and feels better today. Still has significant amount of swelling and drainage from surgical site. Continue IV antibiotics and monitor closely. Exam - Constitutional Vitals: Period Temp Pulse Resp BP Sys/Pinon Pulse Ox Last 24 Hr 97.0 F-99.1 F 81-88 16-18 122-141/68-93 98-100 Exam: Constitutional System: No distress. No tremulousness. Head: Normocephalic, atraumatic. Postoperative changes noted in the left mandibular region Ears, Nose and Throat System: No pain or tenderness. No epistaxis or discharge Eyes System: Pupils equal, round, and reactive. Extraocular muscles intact. Neck: Significant swelling and drainage noted. Bandage removed and surgical site examined. Improving slowly. Respiratory System: Chest clear to auscultation. Cardiovascular System: Heart with regular rate and rhythm. No murmur. GI System: Abdomen soft, nontender. Normo active bowel sounds present. Musculoskeletal System: limbs with no pedal edema. Full distal pulses. Normal capillary refill. Neurological System: No discernable sensory deficit. No aphasia Psychiatric System: Conversation is rational Results - Labs CBC & BMP: 03/25/17 03:12 03/25/17 03:12 Lab Results: I have reviewed the past 24 hour labs
[2017-03-28] MEDS: IRON (CARBONYL) 45 MG TABLET PO SCH ×2 (13:22→20:03)
[2017-03-28] MEDS: SODIUM HYPOCHLORITE 0.25% IRRIG 473 ML BOTTLE TOP SCH ×2 (14:58→21:52)
[2017-03-28] MEDS: CHLORHEXIDINE 4% SOLN 118 ML BOTTLE TOP SCH (14:58)
[2017-03-28] MEDS: CLINDAMYCIN 150 MG CAPSULE PO SCH ×2 (15:47→21:53)
--- NOTE | 2017-03-28 23:34 | Progress Note ---
Assessment and Plan (1) Dental abscess Status: Acute Assessment and plan: 41 yo F with left submandibular abscess likely due to carious tooth #18 POD #4 s /p I & D and extraction of tooth 1. continue IV antibiotics, pain control 2. culture results available - would recommending narrowing antibiotics 3. continue BID dressing changes per wound care team; left neck drain removed 4. head of bed elevated 5. clear for discharge home from my standpoint with follow up with me a week after discharge 6. will likely need referral to plastics for left neck closure and possible grafting - may need to discuss with social work regarding insurance issue. Current Visit: Yes Family Medicine PN Sub Interval history: Patient now POD #4 s/p I&D left submandibular abscess and extraction tooth #18. Doing much better, no dysphagia, no dyspnea. Drainage from left neck has essentially stopped. Still getting BID wound care management. On IV antibiotics. Cultures returned as bacteroides t. Exam (Progress Note) - Constitutional Vitals: Period Temp Pulse Resp BP Sys/Pinon Pulse Ox Last 24 Hr 97.0 F-99.1 F 76-86 16-20 122-155/68-96 97-100 General appearance: no acute distress - ENT ENT exam: Present: other (intraoral drain intact, extraction site healing well, no intraoral swelling, no tenderness) - Neck Neck exam: Present: other (left neck drain intact with no drainage visible, site healing with no necrotic tissue present; no erythema, no swelling) Results - Labs CBC & BMP: 03/25/17 03:12 03/25/17 03:12 Lab Results: I have reviewed the past 24 hour labs - Impressions Patient now POD#4 s/p I&D left submandibular abscess and extraction tooth #18 doing much better.
[2017-03-29] MEDS: PIPERACILLIN/TAZOBACTAM 3,375 MG in SODIUM CHLORIDE 0.9% 100 ML IV SCH (05:00)
[2017-03-29] MEDS: CLINDAMYCIN 150 MG CAPSULE PO SCH (05:01)
[2017-03-29] MEDS: IRON (CARBONYL) 45 MG TABLET PO SCH (08:51)
[2017-03-29] MEDS: PANTOPRAZOLE 40 MG TABLET PO SCH (08:51)
[2017-03-29] MEDS: CHLORHEXIDINE 0.12% ORAL RINSE 60 ML BOTTLE SWISH/SPIT SCH (08:52)
--- NOTE | 2017-03-29 10:07 | Discharge Summary ---
Hospital Course - Hospital Course Hospital Course: Ms. Santiago is a 41 year old female with no past medical history who presented to the ED this morning with left-sided facial swelling and pain x 7 days. Ms. Santiago reports that 7 days ago, she had sudden development of facial swelling for which she presented to the ED in [place] where she was given an antibiotic shot and sent home with a prescription for clindamycin. On Monday, she once again presented to the ED in [place] because there had been no change in her condition. At that time she was given 3 shots and sent home to continue her oral antibiotics. She presented to [facility] ED because the pain had become more than she can bear and still has had no change in swelling. Her pain is 10/10 and throbbing. She also has complaints of fever, chills, and continuous nausea but denies vomiting other than one episode a few days ago. She takes no routine medications. Hospitalist services were consulted for further evaluation and management, and the patient will was admitted to the medical-surgical unit. She was seen in consultation by Dr. Mcghee. She underwent an incision and drainage of the submandibular abscess with removal of tooth #18. A Joao drain was placed and the wound was left open to drain. She was treated with IV Zosyn and IV pain medications. She has been hospitalized for a total of 6 days. Her symptoms have improved significantly as well as the swelling and drainage. She has been cleared for discharge by maxillofacial surgery. She will follow-up with him in 1 week. She is also being referred to plastic surgery for consideration of closure of the incision site. She will be discharged on Cleocin and given a prescription for pain medication. - Time spent with patient Time with patient DS: Greater than 30 minutes (Total discharge time for this patient, including [id number] time, clinical documentation, medication reconciliation, and discharge planning was 42 minutes.) Diagnosis - Discharge Diagnosis (1) Dental abscess Status: Acute (2) Left facial swelling Status: Acute (3) Status post debridement and tooth extrac Status: Resolved (4) Leukocytosis Status: Resolved Specialty Discharge - Follow Up or Referrals Follow up with: Chun Mcghee MD [Physician] - 04/05/17 8:00 am Discharge Plan - Discharge Data Disposition: Disch To Home/Self Care Condition at Discharge: Stable Discharge Diet: advance to your usual diet Activity: resume usual activities as tolerated Hygiene: no restrictions Weight Bearing at Discharge: full weight bearing Driving: no restrictions Contact your physician if you experience:: fever over 101, Bleeding, pain uncontrolled by pain medications - Discharge Medications New Acetaminophen Tab [Tylenol Tab] 650 mg PO Q4H PRN tablet PRN Reason: fever, headache/body aches Chlorhexidine 0.12% Oral Rinse [Peridex] 15 ml SWISH/SPIT BID bottle Chlorhexidine 4% Soln [Hibiclens] 1 applic TOP DAILY applic HYDROcodone/ACETAMIN 7.5-325 [[place] 7.5-325] 1 tablet PO Q4H PRN #40 tablet PRN Reason: Pain Moderate (4-7) Iron (Carbonyl) [Feosol Natural Release Tab] 45 mg PO BID #60 tablet Clindamycin Cap [Cleocin Cap] 450 mg PO Q8HR #21 capsule - Follow Up or Referral Follow Up: Chun Mcghee MD [Physician] - 04/05/17 8:00 am - Forms/Instructions Additional Discharge Instructions: Change dressing twice daily. Keep area clean and dry. Exam - Constitutional Vitals: Period Temp Pulse Resp BP Sys/Pinon Pulse Ox Last 24 Hr 97.6 F-98.8 F 76-86 16-20 116-155/62-96 97-100 Discharge Results Procedures and tests throughout hospitalization: Pending Orders 03/24/17 Abscess Culture Routine Anaerobic Culture Routine Labs on day of discharge: Labs from last 24 hours 03/29/17 04:08 Hemoglobin A1c 5.8 Preliminary micro results at discharge 03/24/17 Unknown Abscess Culture - Preliminary Face - Abscess Gram positive rods DS: Provider Date of admission: 03/23/17 05:25 Primary care physician: . No PCP Attending physician on admission: Adolph Malhotra MD Consults: 03/23/17 05:25 Consult to Physician [CONS] Routine Comment: Dental abscess Consulting Provider: Sandip Diaz Consult to Specialist Group: ENT Person Notified: René Date Notified: 03/23/17 Time Notified: 08:45 Consult to Physician [CONS] Routine Comment: Dental abscess Consulting Provider: Chun Mcghee Consult to Specialist Group: Dentist Person Notified: Komal Date Notified: 03/23/17 Time Notified: 08:35 03/25/17 15:48 Consult to Wound Care - Mika [CONS] Routine Reason for Wound Care: Wound Care Management Consult Comment: left neck wound s/p I&D left submandibular abscess 03/26/17 12:01 Consult to Case Mgmt/Social Srvs [CONS] Routine Reason for Case Mgmt/Social Srvs: Home Health Consult Comment: wound care Discharging clinician: Simone Fish MD Expected date of discharge: 03/29/17
[2017-03-29 11:22] VITALS: BP 137/78
[2017-03-29] MEDS: CHLORHEXIDINE 4% SOLN 118 ML BOTTLE TOP SCH (12:19)
[2017-03-29] MEDS: SODIUM HYPOCHLORITE 0.25% IRRIG 473 ML BOTTLE TOP SCH (12:19)
== END 2017-03-29 12:38 | disposition home or self-care (01) | DRG 158 ==
LOC: N.ED 04:33 → N.EDINP 05:25 → SUATTDRO 05:25 → N.TELES 06:55 → N.3E 03-26 13:52
PROVIDERS: ADMIT Internal Medicine; ATTEND Family Medicine